=== PATIENT | female | born 1970 | race Caucasian/White ===

== ENCOUNTER 2019-07-07 06:42 | Observation (INO) ==
[2019-07-07] MEDS ORDERED: PNEUMOCOCCAL VACCINE (23 VALENT) 0.5 ML VIAL IM ONE (08:34)
[2019-07-07] MEDS ORDERED: ACETAMINOPHEN 325 MG TABLET PO PRN (09:52)
[2019-07-07] MEDS ORDERED: traZODone 50 MG TABLET PO PRN (09:52)
[2019-07-07] MEDS ORDERED: NICOTINE 21 MG/24 HR PATCH TRANSDERM PRN (09:52)
[2019-07-07] MEDS ORDERED: BISACODYL 5 MG TABLET PO PRN (09:52)
[2019-07-07] MEDS ORDERED: guaiFENesin/DM ER 600-30 MG TABLET PO PRN (09:52)
[2019-07-07] MEDS ORDERED: MORPHINE 4 MG/1 ML VIAL IV PRN (09:52)
[2019-07-07] MEDS ORDERED: ONDANSETRON 4 MG/2 ML VIAL IV PRN (09:52)
[2019-07-07] MEDS ORDERED: carvediloL 12.5 MG TABLET PO SCH (10:00)
[2019-07-07 10:26] LABS: Basophils # 0.1 10*3/uL (0.0-0.2); Basophils % 0.6 % (0.0-0.8); Eosinophils # 0.8 10*3/uL (0.0-0.87); Eosinophils % 7.9 % (0.00-10.9); Hematocrit 31.7 VOL% (35.7-47.0); Immature Granulocytes % 0.3 %; Immature Granulocytes Absolute 0.03 #; Lymphocytes # 2.7 10*3/uL (1.4-4.0); Lymphocytes % 28.4 % (21.3-54.2); Mean Corpuscular HGB Conc 31.5 GM/DL (32-36); Mean Corpuscular Volume 78.5 FL (87-102); Mean Platelet Volume 8.7 FL (9.6-12.0); Neutrophils % 57.8 % (38.7-73.9); Platelet Count 371 T/CUMM (130-400); Red Blood Count 4.04 MC/CUMM (3.8-5.5); Red Cell Distribution Width 14.6 % (9.3-17.3); White Blood Count 9.6 T/CUMM (4-12)
[2019-07-07] MEDS: amLODIPine 10 MG TABLET PO SCH (10:39)
[2019-07-07] MEDS: PANTOPRAZOLE 40 MG TABLET PO SCH (10:39)
[2019-07-07 10:53] LABS: Alanine Aminotransferase 30 U/L (13-56); Albumin 3.4 G/DL (3.4-5.0); Alkaline Phosphatase 116 U/L (45-117); Aspartate Amino Transferase 25 U/L (0-37); Bilirubin,Total < 0.39 MG/DL (0.2-1.0); Blood Urea Nitrogen 15 MG/DL (7-18); Calcium 8.8 MG/DL (8.5-10.1); Estimated Glom Filtration Rate 70 ML/MIN; Glucose 85 MG/DL (74-106); HDL Cholesterol 55 MG/DL (40-60); Osmolality,Calculated 278.4 MOS/KG (273-304); Risk Ratio 4.42; Total Protein 7.7 G/DL (6.4-8.3); Triglycerides 143 MG/DL (2-150); VLDL CHOLESTEROL 28.6 MG/DL
[2019-07-07] MEDS ORDERED: SKIN HEALING OINT (AQUAPHOR) 50 GM TUBE TOP SCH (14:05)
[2019-07-07] MEDS: LORazepam 2 MG/1 ML VIAL IV PRN ×2 (14:13→20:56)
[2019-07-07 18:41] LABS: Apearance,Urine Slightly Hazy (Clear); Bilirubin,Urine Negative (Negative); Blood, Urine Negative (Negative); Glucose,Urine (UA) Negative (Negative); Ketones,Urine Negative (Negative); Mucus,Urine Occasional /LPF (Occasional); Nitrite,Urine Negative (Negative); Protein,Urine Negative; RBC,Urine 3 /HPF (0-4); Squamous Epithelial Cell,Urine Occasional /HPF (0-10); Urine Color Yellow (Yellow); Urine Specific Gravity 1.023 (1.001-1.035); WBC,Urine 2 /HPF (0-6)
[2019-07-07 18:44] LABS: Barbiturates Screen,Urine Negative (Negative); Benzodiazepines Screen,Urine Negative (Negative); Cannabinoid Screen,Urine Negative (Negative); Opiate Screen,Urine Negative (Negative); Phencyclidine Screen,Urine Negative (Negative)
[2019-07-07] MEDS ORDERED: LORazepam 2 MG/1 ML VIAL ONE (20:47)
[2019-07-07] MEDS ORDERED: ATORVASTATIN 40 MG TABLET PO SCH (21:00)
[2019-07-07] MEDS ORDERED: ENOXAPARIN 40 MG/0.4 ML SYRINGE SUBCUT SCH (21:00)
[2019-07-08 05:08] LABS: Basophils # 0.1 10*3/uL (0.0-0.2); Basophils % 0.8 % (0.0-0.8); Eosinophils % 13.1 % (0.00-10.9); Hematocrit 33.5 VOL% (35.7-47.0); Hemoglobin 10.3 GM/DL (12.0-16.0); Immature Granulocytes % 0.3 %; Immature Granulocytes Absolute 0.02 #; Lymphocytes # 2.1 10*3/uL (1.4-4.0); Lymphocytes % 28.1 % (21.3-54.2); Mean Corpuscular HGB Conc 30.7 GM/DL (32-36); Mean Corpuscular Volume 79.4 FL (87-102); Mean Platelet Volume 9.1 FL (9.6-12.0); Monocytes % 7.2 % (1.7-12.7); Neutrophils % 50.5 % (38.7-73.9); Platelet Count 344 T/CUMM (130-400); Red Blood Count 4.22 MC/CUMM (3.8-5.5); Red Cell Distribution Width 14.6 % (9.3-17.3); White Blood Count 7.4 T/CUMM (4-12)
[2019-07-08 05:31] LABS: Eosinophils 17 % (0-10); Hypochromasia 1+; Lymphocytes 19 % (20-55); Platelet Estimate Adequate; Segmented Neutrophils 61 % (50-85); Total Cells Counted 100
[2019-07-08 05:39] LABS: % Iron Saturation 11.3 % (18-50)
[2019-07-08] MEDS ORDERED: ASPIRIN EC 325 MG TABLET PO SCH (09:00)
[2019-07-08] MEDS ORDERED: ESCITALOPRAM 10 MG TABLET PO SCH (09:00)
[2019-07-08] MEDS: amLODIPine 10 MG TABLET PO SCH (10:10)
[2019-07-08] MEDS: PANTOPRAZOLE 40 MG TABLET PO SCH (10:10)
[2019-07-08 13:00] VITALS: BP 143/93
== END 2019-07-08 15:13 | disposition home or self-care (01) ==
LOC: N.TELEN → SUATTDRO 07:56
PROVIDERS: ADMIT Emergency Medicine; ATTEND Internal Medicine Cardiovascular Disease